=== PATIENT | male | born 1985 | race Caucasian/White ===

== ENCOUNTER 2017-04-04 12:36 | Emergency (ER) | payer SELFPAY ==
[2017-04-04 12:53] VITALS: BP 136/81
--- NOTE | 2017-04-04 13:06 | UC ---
Laceration HPI - HPI Summary HPI Summary: complaint of having a seizure and fell over 2 days ago, vomited 1x seen at [facility] and evaluated ,glued laceration and he refused ct scan because he and his are trying to have a baby since the fall he has had 2 episodes of falling constant headache in the front of his head which has been worsening this morning feels sightly dizzy and his vision sometimes is blurry and objects are bouncing around yesterday vomited 2x taking lamictal and keppra hx of seizures since 2011- see PCP Norbert Scott, sees neurology in [place] taking ibuprofen for headache without relief - History Of Current Complaint Chief Complaint: UCGeneralIllness Stated Complaint: FOREHEAD LACERATION Time Seen by Provider: 04/04/17 12:55 Hx Obtained From: Patient, Family/Chauffeur - Allergies/Home Medications Allergies/Adverse Reactions: Allergies Allergy/AdvReac Type Severity Reaction Status Date / Time No Known Allergies Allergy Verified 04/04/17 12:47 Home Medications: Home Medications Ibuprofen TAB* [Advil TAB*] 600 mg PO Q6H PRN 04/04/17 [History Confirmed ] lamoTRIgine TAB(*) [LaMICtal TAB(*)] 100 mg PO QAM 04/04/17 [History Confirmed 04/04/17] levETIRAcetam TAB* [Keppra TAB*] 1,000 mg PO BID 04/04/17 [History Confirmed 08/11] PMH/Surg Hx/FS Hx/Imm Hx Previously Healthy: No - seizures, head injury Neurological History: Seizures - Surgical History Surgical History: Yes Surgery Procedure, Year, and Place: Deviated Septum, [place] - Family History Known Family History: Negative: Cardiac Disease, Hypertension, Diabetes - Social History Occupation: Employed Full-time Lives: With Family Alcohol Use: None Substance Use Type: None Smoking Status (MU): Current Some Day Smoker Type: eCigarettes Household Exposure Type: Cigarettes Review of Systems Constitutional: Negative Skin: Other - laceration Eyes: Blurred Vision ENT: Negative Respiratory: Negative Cardiovascular: Negative Gastrointestinal: Vomiting Genitourinary: Negative Motor: Negative Neurovascular: Negative Musculoskeletal: Negative Neurological: Headache Psychological: Negative All Other Systems Reviewed And Are Negative: Yes Physical Exam Triage Information Reviewed: Yes Appearance: No Pain Distress, Well-Nourished Vital Signs: Initial Vital Signs Temp 98.5 F 04/04/17 12:42 Pulse 100 04/04/17 12:42 Resp 16 04/04/17 12:42 BP 136/81 04/04/17 12:42 Pulse Ox 100 04/04/17 12:42 Vital Signs Reviewed: Yes Eyes: Positive: Conjunctiva Clear, Other: - EOMI ENT: Positive: Pharynx normal, TMs normal Neck: Positive: No Lymphadenopathy Respiratory: Positive: Lungs clear, Normal breath sounds, No respiratory distress, No accessory muscle use Cardiovascular: Positive: RRR, No Murmur, Pulses Normal Abdomen Description: Positive: Nontender, Soft Bowel Sounds: Positive: Present Musculoskeletal Exam: Normal Neurological: Positive: Other: - positive romberg CN [id number] normal Psychological Exam: Normal Skin Exam: Other - left side of forehead 5cm laceration Laceration Repair - Laceration Repair 1 Description: Linear Laceration Size After Repair: Length (cm) - 5, Width (mm) - 2, Depth (mm) - 3 Modified For Repair: No Closure Material: SteriStrips Suture Of: Skin Laceration Course/Dx - Course/Dx Course Of Treatment: exam completed. laceration on forehead open - more than 48 hours have passed since closure- wound covered with steristrips and will send to plastic sugery for further evaluation. Pt ana had 3 seizures and multiple episodes of vomiting, dizziness and vision chnages since his fall 2 days ago- will send to ED for further evaluation/ct scan - Differential Dx - Laceration/Wound Differental Diagnoses: Laceration Provider Diagnoses: seizures, head injury, laceration - Physician Notification/Consults Discussed Patient Care With: Dr Emanuel [facility] ED Time Discussed With Above Provider: 13:25 Discharge - Discharge Plan Condition: Stable Disposition: [facility] CARE FAC Patient Education Materials: Laceration (ED), Head Injury (ED) Referrals: Wilton Lobo MD [Doctor of Dental Medicine] - Additional Instructions: keep steristrips in place until you are seen by plastic surgery please proceed to the ED for further evaluation of your head injury/seizures
== END 2017-04-04 13:28 | disposition short-term general hospital (02) ==
LOC: EDSEX → UCCORT 12:36
DX: S01.81XA Laceration without foreign body of other part of head, initial encounter (principal); F17.210 Nicotine dependence, cigarettes, uncomplicated; W19.XXXA Unspecified fall, initial encounter; Y92.9 Unspecified place or not applicable; G40.909 Epilepsy, unspecified, not intractable, without status epilepticus
CPT/HCPCS: 99202; G0463

== ENCOUNTER 2017-04-15 16:23 | Emergency (ER) | payer OTHER ==
[2017-04-15 16:28] VITALS: BP 125/83
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
== END 2017-04-15 17:20 | disposition left against medical advice (07) ==
LOC: UCEAST 16:23
DX: G40.802 Other epilepsy, not intractable, without status epilepticus (principal); S01.412A Laceration without foreign body of left cheek and temporomandibular area, initial encounter; W18.12XA Fall from or off toilet with subsequent striking against object, initial encounter; F17.210 Nicotine dependence, cigarettes, uncomplicated
CPT/HCPCS: 99212; G0463

== ENCOUNTER 2017-04-15 18:13 | Emergency (ER) | payer OTHER ==
[2017-04-15 19:17] VITALS: BP 143/84
[2017-04-15] MEDS ORDERED: NS 0.9% 1000 ML* 1,000 ML IV ONE (19:18)
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
== END 2017-04-15 20:00 | disposition left against medical advice (07) ==
LOC: ED 18:13
DX: S01.81XA Laceration without foreign body of other part of head, initial encounter (principal); G40.909 Epilepsy, unspecified, not intractable, without status epilepticus; R51 Headache; Z72.0 Tobacco use; R53.83 Other fatigue; R42 Dizziness and giddiness; W19.XXXA Unspecified fall, initial encounter; Y93.9 Activity, unspecified; Y92.9 Unspecified place or not applicable; Y99.9 Unspecified external cause status
CPT/HCPCS: 93005; 99282